=== PATIENT | female | born 1970 | race Caucasian/White ===

== ENCOUNTER 2017-12-02 20:44 | Emergency (ER) | payer MEDICAID ==
[~2017-12-02] VITALS: Ht 162.6 cm; Wt 84.8 kg
[2017-12-02] MEDS ORDERED: CARDIZEM CD120 MG (20:51)
[2017-12-02] MEDS ORDERED: PLAVIX 75 MG TA75 M1 PO (20:51)
[2017-12-02] MEDS ORDERED: CARVEDILOL12.5 MG PO (20:51)
[2017-12-02] MEDS ORDERED: ATORVASTATIN CA40 MG PO (20:52)
[2017-12-02] MEDS ORDERED: OTEZLA30 MG PO (20:52)
[2017-12-02] MEDS ORDERED: NEURONTIN 300300 M1 PO (20:52)
[2017-12-02] MEDS ORDERED: BUSPIRONE HCL10 MG PO (20:52)
[2017-12-02] MEDS ORDERED: ASPIR 8181 MG PO (20:52)
[2017-12-02] MEDS ORDERED: PROMETHAZINE HC25 M1 PO (20:53)
[2017-12-02] MEDS ORDERED: NORCO 10-325 T1 EACH PO (20:53)
[2017-12-02] MEDS ORDERED: VISTARIL 25 MG25 M1 PO (20:53)
[2017-12-02] MEDS ORDERED: IMDUR 30 MG TAB30 M1 (20:54)
[2017-12-02] MEDS ORDERED: TRESIBA FL200 UNIT/1 (20:54)
[2017-12-02] MEDS ORDERED: HUMALOG100 UNIT/2 (20:54)
[2017-12-02 22:19] LABS: ABSOLUTE BASOPHILS 0.1 thou/uL (0.0-0.2); ABSOLUTE EOSINOPHILS 0.3 thou/uL (0.0-0.7); ABSOLUTE LYMPHOCYTES 3.2 thou/uL (0.8-5.3); ABSOLUTE MONOCYTES 0.5 thou/uL (0.0-1.2); ABSOLUTE NEUTROPHILS 6.4 thou/uL (1.6-8.1); BASOPHILS 1.3 %; HEMATOCRIT 42.7 % (37.0-47.0); HEMOGLOBIN 14.4 gm/dL (12.0-15.0); LYMPHOCYTES 30.4 %; MCHC 33.8 g/dL (28.0-37.0); MCV 91.6 fL (80.0-100.0); MONOCYTES 5.1 %; MPV 7.6 fl. (7.2-11.1); NUCLEATED RBCS 0 /100WBC; PLATELET COUNT* 251 thou/uL (150-400); POLYS 60.2 %; RBC 4.66 mil/uL (4.20-5.00); RDW-CV 14.3 % (10.5-14.5); WBC 10.6 thou/uL (4.0-11.0)
[2017-12-02 22:25] LABS: POTASSIUM 4.3 mmol/L (3.5-5.1)
[2017-12-02 22:26] LABS: PROTIME 9.4 Seconds (9.20-11.50)
[2017-12-02 22:30] LABS: ALBUMIN 3.7 g/dL (3.4-5.0); TOTAL BILIRUBIN 0.4 mg/dL (<0.1-1.0); TOTAL PROTEIN 7.1 g/dL (6.4-8.2)
[2017-12-03 00:45] VITALS: BP 130/60
--- NOTE | 2017-12-03 11:33 | EKG ---
[place] [address] ELECTROCARDIOGRAM REPORT Name: JOSIE GUERRERO Room: [facility]#: [id number] Admission: 12/02/17 Attend Phys: Discharge: 12/03/17 Date of : 74 Report #: [id number] THIS REPORT FOR: //name// [facility] ED Test Date: 2017-12-02 Test Time: 21:26:15 Pat Name: JOSIE GUERRERO Department: Room: Gender: F [employer]: EVETTE Soriano : 1970 Requested By: Nery Trevino Order Number: [id number] MD: Ole Brooks Measurements Intervals Carrier Rate: 93 P: 20 NM: 149 QRS: -12 QRSD: 98 T: 36 QT: 372 QTc: 463 Interpretive Statements Sinus rhythm Baseline wander in lead(s) III No previous ECG available for comparison Electronically Signed On 12-03-2017 11:33:37 CDT by Ole Brooks [email or web address] <ELECTRONICALLY SIGNED> By: Ole Brooks MD, [facility] 12/03/17 1133 25 25 Ole Brooks MD, FACC /EPI
== END 2017-12-03 00:45 | disposition home or self-care (01) ==
LOC: M.ERS 20:44
PROVIDERS: Emergency Medicine
DX: R60.9 Edema, unspecified (principal); I10 Essential (primary) hypertension; E11.9 Type 2 diabetes mellitus without complications; E78.00 Pure hypercholesterolemia, unspecified; E11.40 Type 2 diabetes mellitus with diabetic neuropathy, unspecified; F17.210 Nicotine dependence, cigarettes, uncomplicated; Z79.4 Long term (current) use of insulin; Z90.710 Acquired absence of both cervix and uterus